=== PATIENT | male | born 1955 | race Caucasian/White ===

== ENCOUNTER 2020-04-25 13:07 | Outpatient (CLI) | payer MEDICARE, SELFPAY ==
--- NOTE | ~2020-04-25 | US_ITS ---
EXAMINATION: US thyroid DATE: 04/25/2020 13:33 INDICATION: Nontoxic single thyroid nodule. TECHNIQUE: Multiple ultrasound images of the thyroid were obtained. COMPARISON: None. FINDINGS: The right thyroid lobe measures 4.9 x 2.0 x 2.1 cm. The left thyroid lobe measures 3.5 x 1.5 x 1.2 c m. In the right thyroid lobe, there is a 7 mm solid, hypoechoic, [id number] nodule with ill-def ined margin without echogenic foci (TI-RADS TR4). IMPRESSION: 1. Small thyroid nodule, likely not clinically significant. No follow-up is needed. Reviewed, dictated and finalized at location A. [employer]ATOR IMPRESSION: 1. Small thyroid nodule, likely not clinically significant. No follow-up is nee ded.
== END 2020-04-25 13:08 | disposition home or self-care (01) ==
PROVIDERS: Visit Provider Internal Medicine Endocrinology, Diabetes & Metabolism
DX: E04.1 Nontoxic single thyroid nodule (principal)
CPT/HCPCS: 76536

== ENCOUNTER 2021-06-12 12:14 | Outpatient (CLI) | payer MEDICARE, SELFPAY ==
--- NOTE | ~2021-06-12 | US_ITS ---
EXAMINATION: US thyroid DATE: 06/12/2021 12:42 INDICATION: Thyroid nodules TECHNIQUE: Multiple ultrasound images of the thyroid were obtained. COMPARISON: 04/25/2020 FINDINGS: The right thyroid lobe measures 4.6 x 1.7 x 2.0 cm. The left thyroid lobe measures 3.7 x 1.3 x 1.0 c m. Slight increase in size of a now 9 mm, previously 7 mm mixed solid and cystic wider than tall nod ule with smooth margins, hypoechoic solid component and without echogenic foci (TI-RADS 3, mildly rashaad picious , FNA if >=2.5 cm, annual followup is >=1.5 cm). There is normal echotexture, echogenicity an d vascular flow throughout the thyroid gland. IMPRESSION: 1. No significant interval change in a 9 mm right thyroid nodule which remains below threshold for ei ther biopsy or follow-up. Reviewed, dictated and finalized at location A. IMPRESSION: 1. No significant interval change in a 9 mm right thyroid nodule which remains below threshold for either biopsy or follow-up.
== END 2021-06-12 12:15 | disposition home or self-care (01) ==
PROVIDERS: Visit Provider Internal Medicine Endocrinology, Diabetes & Metabolism
DX: E04.1 Nontoxic single thyroid nodule (principal)
CPT/HCPCS: 76536

== ENCOUNTER 2021-06-21 13:45 | Outpatient (CLI) | payer MEDICARE, SELFPAY ==
[2021-06-21 17:07] LABS: Free T4 Free Thyroxine 0.72 ng/mL (0.78-2.19)
== END 2021-06-21 13:46 | disposition home or self-care (01) ==
LOC: ANHWCLAB 13:48
PROVIDERS: Visit Provider Internal Medicine Endocrinology, Diabetes & Metabolism
DX: E04.1 Nontoxic single thyroid nodule (principal)
CPT/HCPCS: 36415; 84439; 84443

== ENCOUNTER 2021-08-28 11:08 | Outpatient (CLI) | payer MEDICARE, SELFPAY ==
[2021-08-28 13:34] LABS: Free T4 Free Thyroxine 0.75 ng/mL (0.78-2.19)
== END 2021-08-28 11:09 | disposition home or self-care (01) ==
LOC: ANHWCLAB 11:12
PROVIDERS: Referring Provider Internal Medicine Endocrinology, Diabetes & Metabolism; Visit Provider Internal Medicine Endocrinology, Diabetes & Metabolism
DX: E04.1 Nontoxic single thyroid nodule (principal)
CPT/HCPCS: 36415; 84439; 84443

== ENCOUNTER 2021-10-10 11:21 | Outpatient (CLI) | payer MEDICARE, SELFPAY ==
[2021-10-10 13:36] LABS: Free T4 Free Thyroxine 0.78 ng/mL (0.78-2.19)
[2021-10-10 21:11] LABS: T4 Thyroxine 7.22 ug/dL (5.53-11.0)
[2021-10-10 21:22] LABS: Total Triiodothyronine (T3) 1.44 NG/ML (0.97-1.69)
[2021-10-13 04:08] LABS: Triiodothyronine T3 Free 3.2 pg/mL (2.3-4.2)
== END 2021-10-10 11:22 | disposition home or self-care (01) ==
LOC: ANHWCLAB 11:25
PROVIDERS: Referring Provider Internal Medicine Endocrinology, Diabetes & Metabolism; Visit Provider Internal Medicine Endocrinology, Diabetes & Metabolism
DX: E04.1 Nontoxic single thyroid nodule (principal); R79.89 Other specified abnormal findings of blood chemistry
CPT/HCPCS: 36415; 84436; 84439; 84443; 84480; 84481

== ENCOUNTER 2023-08-07 11:49 | Outpatient (CLI) | payer MEDICARE, SELFPAY ==
[2023-08-07 15:28] LABS: Free T4 Free Thyroxine 0.88 ng/mL (0.78-2.19)
== END 2023-08-07 11:50 | disposition home or self-care (01) ==
LOC: ANHWCLAB 11:50
PROVIDERS: Visit Provider Internal Medicine Endocrinology, Diabetes & Metabolism
DX: E04.1 Nontoxic single thyroid nodule (principal)
CPT/HCPCS: 36415; 84439; 84443